=== PATIENT | female | born 1940 | race Caucasian/White ===

== ENCOUNTER 2017-01-08 18:16 | Emergency (ER) | payer MEDICARE, BC ==
--- NOTE | 2017-01-08 18:50 | ED ---
General Adult HPI - General Chief complaint: Recheck/Abnormal Lab/Rx Stated complaint: BOWEL PROBLEM Time Seen by Provider: 01/08/17 18:30 Source: patient Mode of arrival: ambulatory Limitations: no limitations - History of Present Illness Initial comments: Patient is a 76-year-old female with a past medical history of pancreatic cancer for which she has received chemo and radiation. Patient reports she was advised by her primary care physician to come to the ER if she ever stops passing gas. Patient states that today around 9 AM she had a normal bowel movement, it was soft in consistency and normal in color and caliber. She reports that until about noon she was passing gas however since that time she has not been able to. The patient states she came to the emergency department for an x-ray for evaluation of not passing gas. Patient does complain of a vague abdominal discomfort though she denies any pain she has been eating a normal diet and being able to drink. Patient states that all of her care for her pancreatic cancer has been done at [facility] however she had to be transferred to [facility] for stent placement in her liver. However they state this was in outpatient procedure and she was transferred immediately back to [facility] where she follows with Dr. Paulino. Patient's family at bedside state they have not seen her for a couple of weeks but that they do agree she appears jaundiced today. They state that the patient was diagnosed with pancreatic cancer in October of last year, they're unsure of what exact therapy she has undergone. They do state that she has had chemo, radiation and a stent placed however they are not sure of the timeline of events. - Related Data Home Medications Medication Instructions Recorded Confirmed Vitamin E (Dl,Tocopheryl Acet) 400 unit PO DAILY 02/25/16 01/08/17 [Vitamin E] Cranberry Fruit Extract [Cranberry] 200 mg PO DAILY 01/08/17 01/08/17 Allergies Allergy/AdvReac Type Severity Reaction Status Date / Time nitrofurantoin Allergy Unknown Verified 01/08/17 20:04 [From Macrobid] hydroxyzine AdvReac Nausea & Verified 01/08/17 20:04 Vomiting sulfamethoxazole AdvReac HEADACHE Verified 01/08/17 20:04 [From Bactrim] trimethoprim [From Bactrim] AdvReac HEADACHE Verified 01/08/17 20:04 Review of Systems ROS Statement: Those systems with pertinent positive or pertinent negative responses have been documented in the HPI. ROS Other: All systems not noted in ROS Statement are negative. Constitutional: Reports: weakness (Generalized). Denies: fever Respiratory: Denies: cough, dyspnea Cardiovascular: Denies: chest pain, palpitations Endocrine: Reports: fatigue Gastrointestinal: Reports: abdominal pain, constipation. Denies: nausea, vomiting, diarrhea, hematemesis Genitourinary: Denies: urgency, dysuria Musculoskeletal: Denies: back pain Skin: Denies: rash, lesions Neurological: Reports: confusion. Denies: headache Psychiatric: Denies: anxiety Past Medical History Past Medical History: Cancer, Hypertension Additional Past Medical History / Comment(s): pancreatic cancer, whith current chemotherapy History of Any Multi-Drug Resistant Organisms: None Reported Past Surgical History: Unable to Obtain Past Psychological History: No Psychological Hx Reported Smoking Status: Current every day smoker Past Alcohol Use History: None Reported Past Drug Use History: None Reported General Exam Limitations: no limitations General appearance: alert, in no apparent distress Head exam: Present: atraumatic, normocephalic, normal inspection Eye exam: Present: PERRL, EOMI, scleral icterus ENT exam: Present: normal exam, mucous membranes moist Neck exam: Present: normal inspection. Absent: tenderness, meningismus, lymphadenopathy Respiratory exam: Present: normal lung sounds bilaterally. Absent: respiratory distress, wheezes, rales, rhonchi, stridor Cardiovascular Exam: Present: regular rate, normal rhythm, normal heart sounds. Absent: systolic murmur, diastolic murmur, rubs, gallop, clicks GI/Abdominal exam: Present: soft, normal bowel sounds. Absent: distended, tenderness, guarding, rebound, rigid Rectal exam: Present: deferred Extremities exam: Present: normal inspection, full ROM, normal capillary refill. Absent: tenderness, pedal edema, joint swelling, calf tenderness Neurological exam: Present: alert Psychiatric exam: Present: normal affect, other (pleasantly confused) Skin exam: Present: warm, dry, other (jaundice) Course Vital Signs 01/08/17 01/08/17 01/08/17 18:19 20:24 20:59 Temperature 100.3 F H 99.8 F H Pulse Rate 95 90 Respiratory 17 18 Rate Blood Pressure 153/76 166/76 O2 Sat by Pulse 97 96 Oximetry - Reevaluation(s) Reevaluation #1: Lab findings were discussed with the patient, I advised her that she has multiple abnormalities which are concerning and that she needs to follow up with her cancer specialist. Computed tomography scan was ordered. Patient family state they would prefer to stay at this hospital is closer to their home , however they understand the for continuity of care they're agreeable for transfer 01/08/17 20:20 Reevaluation #2: I advised the patient and her family that I discussed transfer care with Dr. Baca at [facility] who accepts the transfer for elevated transaminases and elevated total bili with concern for obstructive jaundice secondary to a pancreatic cancer 01/08/17 21:02 Medical Decision Making - Medical Decision Making Patient was seen and evaluated History was obtained from the patient Vital signs were reviewed History is vague as patient seems to have a vague abdominal pain and concern that she is not passing gas though it has only been a number of hours and she has not experienced any significant abdominal pain. Her exam is benign aside from jaundice and scleral icterus. Considering the patient's history of pancreatic cancer with obstructive jaundice in the past I am concerned about this. Family at bedside hasn't seen the patient and number of weeks and that they don't comment on her jaundice state when questioned they do agree that she appears jaundiced today. They're unsure if she appears jaundiced every day since the diagnosis of her pancreatic cancer. Labs were ordered Labs reveal significant abnormalities suggestive of obstructive jaundice with a total bili of 9.8 and elevated transaminases and alk phos These results were discussed with the patient as well as her family, I advised them that for continuity of care and will be in the patient's best interest to be transferred to [facility] where she has received all of her care in the past. I advised the patient that we need a computed tomography scan of the abdomen as well as an ultrasound. Patient and family expressed desire for the transfer to occur sooner rather than later so the family can go home. I advised them that I will discuss care with [facility] and see if they accept transfer without definitive imaging Patient care was discussed with Dr. Baca at [facility] who accepts transfer for obstructive jaundice in a patient with a history of pancreatic cancer currently undergoing therapy. Dr. Baca is aware that the patient has not had an ultrasound today, and states that they can complete that at his facility. Patient is undergoing computed tomography scan at this facility, disc will be burning results will be transferred to the physicians at [facility]. - Lab Data Result diagrams: 01/08/17 19:07 01/08/17 19:07 Lab Results 01/08/17 01/08/17 01/08/17 Range/Units 19:07 19:07 19:07 WBC 9.5 (3.8-10.6) k/uL RBC 3.80 (3.80-5.40) m/uL Hgb 12.0 (11.4-16.0) gm/dL Hct 37.4 (34.0-46.0) % MCV 98.3 (80.0-100.0) fL MCH 31.5 (25.0-35.0) pg MCHC 32.1 (31.0-37.0) g/dL RDW 14.6 (11.5-15.5) % Plt Count 328 (150-450) k/uL Neutrophils % 82 % Lymphocytes % 11 % Monocytes % 5 % Eosinophils % 1 % Basophils % 0 % Neutrophils # 7.8 H (1.3-7.7) k/uL Lymphocytes # 1.0 (1.0-4.8) k/uL Monocytes # 0.5 (0-1.0) k/uL Eosinophils # 0.1 (0-0.7) k/uL Basophils # 0.0 (0-0.2) k/uL PT 10.6 (9.0-12.0) sec INR 1.0 (<1.2) APTT 23.4 (22.0-30.0) sec Sodium 136 L (137-145) mmol/L Potassium 3.9 (3.5-5.1) mmol/L Chloride 101 (98-107) mmol/L Carbon Dioxide 23 (22-30) mmol/L Anion Gap 12 mmol/L BUN 13 (7-17) mg/dL Creatinine 0.55 (0.52-1.04) mg/dL Est GFR (MDRD) Af Amer >60 (>60 ml/min/1.73 sqM) Est GFR (MDRD) Non-Af >60 (>60 ml/min/1.73 sqM) Glucose 108 H (74-99) mg/dL Calcium 9.4 (8.4-10.2) mg/dL Total Bilirubin 9.3 H (0.2-1.3) mg/dL AST 340 H (14-36) U/L ALT 304 H (9-52) U/L Alkaline Phosphatase 734 H (38-126) U/L Ammonia (<30) umol/L Total Protein 6.8 (6.3-8.2) g/dL Albumin 3.7 (3.5-5.0) g/dL Urine Color Urine Appearance (Clear) Urine pH (5.0-8.0) Ur Specific [place] (1.001-1.035) Urine Protein (Negative) Urine Glucose (UA) (Negative) Urine Ketones (Negative) Urine Blood (Negative) Urine Nitrite (Negative) Urine Bilirubin (Negative) Urine Urobilinogen (<2.0) mg/dL Ur Leukocyte Esterase (Negative) Urine RBC (0-5) /hpf Urine WBC (0-5) /hpf Ur Squamous Epith Cells (0-4) /hpf Urine Bacteria (None) /hpf Urine Mucus (None) /hpf 01/08/17 01/08/17 Range/Units 19:07 19:07 WBC (3.8-10.6) k/uL RBC (3.80-5.40) m/uL Hgb (11.4-16.0) gm/dL Hct (34.0-46.0) % MCV (80.0-100.0) fL MCH (25.0-35.0) pg MCHC (31.0-37.0) g/dL RDW (11.5-15.5) % Plt Count (150-450) k/uL Neutrophils % % Lymphocytes % % Monocytes % % Eosinophils % % Basophils % % Neutrophils # (1.3-7.7) k/uL Lymphocytes # (1.0-4.8) k/uL Monocytes # (0-1.0) k/uL Eosinophils # (0-0.7) k/uL Basophils # (0-0.2) k/uL PT (9.0-12.0) sec INR (<1.2) APTT (22.0-30.0) sec Sodium (137-145) mmol/L Potassium (3.5-5.1) mmol/L Chloride (98-107) mmol/L Carbon Dioxide (22-30) mmol/L Anion Gap mmol/L BUN (7-17) mg/dL Creatinine (0.52-1.04) mg/dL Est GFR (MDRD) Af Amer (>60 ml/min/1.73 sqM) Est GFR (MDRD) Non-Af (>60 ml/min/1.73 sqM) Glucose (74-99) mg/dL Calcium (8.4-10.2) mg/dL Total Bilirubin (0.2-1.3) mg/dL AST (14-36) U/L ALT (9-52) U/L Alkaline Phosphatase (38-126) U/L Ammonia 10 (<30) umol/L Total Protein (6.3-8.2) g/dL Albumin (3.5-5.0) g/dL Urine Color Dark Yellow Urine Appearance Clear (Clear) Urine pH 5.5 (5.0-8.0) Ur Specific [place] 1.014 (1.001-1.035) Urine Protein Negative (Negative) Urine Glucose (UA) Negative (Negative) Urine Ketones 1+ H (Negative) Urine Blood Small H (Negative) Urine Nitrite Negative (Negative) Urine Bilirubin 3+ H (Negative) Urine Urobilinogen 4.0 (<2.0) mg/dL Ur Leukocyte Esterase Moderate H (Negative) Urine RBC 3 (0-5) /hpf Urine WBC 6 H (0-5) /hpf Ur Squamous Epith Cells 2 (0-4) /hpf Urine Bacteria Rare H (None) /hpf Urine Mucus Rare H (None) /hpf Disposition Clinical Impression: Obstructive jaundice due to cancer Disposition: OTHER INSTITUTION NOT DEFINED Condition: Serious Referrals: Darshana East DO [Primary Care Provider] - 1-2 days Time of Disposition: 21:14 - Out of Hospital Transfer - Req. Specs Out of Hospital Transfer - Requested Specifics: Other Emergency Center
[2017-01-08 19:24] LABS: Basophils % (A) 0 %; CH 31.4; CHCM 32.2; Eosinophils # (A) 0.1 k/uL (0-0.7); Eosinophils % (A) 1 %; HCT 37.4 % (34.0-46.0); HDW 2.04; Luc # (Auto) 0.16; Luc % (Auto) 2; Lymphocytes % (A) 11 %; MCH 31.5 pg (25.0-35.0); MCHC 32.1 g/dL (31.0-37.0); MCV 98.3 fL (80.0-100.0); Mean Platelet Volume 8.1; Monocytes # (A) 0.5 k/uL (0-1.0); Monocytes % (A) 5 %; Neutrophils # (A) 7.8 k/uL (1.3-7.7); Neutrophils % (A) 82 %; RDW 14.6 % (11.5-15.5); WBC 9.5 k/uL (3.8-10.6); WBC (Perox) 8.97
[2017-01-08 19:32] LABS: Appearance,Urine Clear (Clear); Bacteria,Urine Rare /hpf; Bilirubin,Urine 3+ (Negative); Glucose,Urine (UA) Negative (Negative); Ketones,Urine 1+ (Negative); Leukocyte Esterase,Urine Moderate (Negative); Mucus,Urine Rare /hpf; Nitrite,Urine Negative (Negative); PH, Urine 5.5 (5.0-8.0); Particle Count 5278; Protein,Urine Negative (Negative); RBC,Urine 3 /hpf (0-5); Specific Gravity,Urine 1.014 (1.001-1.035); Squamous Epithelial Cell,Urine 2 /hpf (0-4); UA Billing (MACRO vs. MICRO) MICRO; WBC,Urine 6 /hpf (0-5)
[2017-01-08 19:33] LABS: ALT 304 U/L (9-52); AST 340 U/L (14-36); Alkaline Phosphatase 734 U/L (38-126); Anion Gap 12 mmol/L; Blood Urea Nitrogen 13 mg/dL (7-17); Calcium 9.4 mg/dL (8.4-10.2); Carbon Dioxide 23 mmol/L (22-30); Chloride 101 mmol/L (98-107); Glucose 108 mg/dL (74-99); Non-African American GFR(MDRD) >60 (>60 ml/min/1.73 sqM); Potassium 3.9 mmol/L (3.5-5.1); Sodium 136 mmol/L (137-145); Total Bilirubin 9.3 mg/dL (0.2-1.3); Total Protein 6.8 g/dL (6.3-8.2)
[2017-01-08 20:01] LABS: Prothrombin Time 10.6 sec (9.0-12.0)
--- NOTE | 2017-01-08 20:01 | XR ---
EXAMINATION TYPE: XR abdomen acute w cxr DATE OF EXAM: 01/08/2017 COMPARISON: NONE HISTORY: Pain TECHNIQUE: Supine, upright, and left side down lateral decubitus views of the abdomen are obtained. FINDINGS: Right IJ Port-A-Cath tip superimposed over the distal SVC. The lungs are clear and well expanded. Ple ural spaces are negative. Cardiomediastinal silhouette and bones and soft tissues are unremarkable. There is no evidence for pneumoperitoneum. The bowel gas pattern is unremarkable as there is air thro ughout nondilated small and large bowel. No sizeable air fluid levels. No mass or mass effect mass ef fect seen. No unusual calcifications. IMPRESSION: No acute process, but excessive pancolonic stool is noted.
[2017-01-08] MEDS ORDERED: RX INFO: IV CONTRAST WAS GIVEN 1 EACH MISC MISCELLANE PRN (20:16)
[2017-01-08 20:25] LABS: Partial Thromboplastin Time 23.4 sec (22.0-30.0)
[2017-01-08 21:01] VITALS: PULSE 90; RESP 18
[2017-01-08 21:27] VITALS: BP 150/79; TEMP 99
--- NOTE | 2017-01-08 22:37 | CT ---
EXAMINATION TYPE: CT abdomen pelvis w con DATE OF EXAM: 01/08/2017 COMPARISON: CT CHEST SUBDIAPHRAGMATIC IMAGES 02/05/2011 HISTORY: No bowel movements. Hx of pancreatic CA. CT DLP: 349.6 mGycm Automated exposure control for dose reduction was used. TECHNIQUE: Helical acquisition of images was performed from the lung bases through the pelvis. CONTRAST: Performed with Oral Contrast and with IV Contrast, patient injected with 100 mL of Omnipaqu e 300. FINDINGS: There is prominent gas throughout the intrahepatic biliary tree with prominent dilation of the intrahepatic biliary tree to a moderate degree diffusely and with extra hepatic biliary tree dila tion down to the level of the head of the pancreas where there is also pancreatic ductal cut off. Azam t is, the pancreatic ductal anatomy is dilated throughout the pancreatic tail and body and neck down to the head with there is abrupt cut off. The uncinate process and head of the pancreas has lost its normal acinar pattern and is masslike and indistinct over a 3 cm diameter zone. There is leftward dev iation of the uppermost superior mesenteric vein, but the portal splenic confluence and portal venous system remain widely patent. There are no focal liver lesions evident. No portal adenopathy. LUNG BASES: No significant abnormality is appreciated. SPLEEN: No significant abnormality is seen. ADRENALS: No significant abnormality is seen. KIDNEYS: No significant abnormality is seen. FREE AIR: No free air is visualized. RETROPERITONEAL ADENOPATHY: None visualized REPRODUCTIVE ORGANS: No significant abnormality is seen URINARY BLADDER: No significant abnormality is seen. PELVIC ADENOPATHY: None visualized. OSSEOUS STRUCTURES: No significant abnormality is seen. BOWEL: No significant abnormality is seen. 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
== END 2017-01-08 22:16 | disposition short-term general hospital (02) ==
LOC: EC 18:16
DX: K83.1 Obstruction of bile duct (principal); C25.9 Malignant neoplasm of pancreas, unspecified; R74.0 Nonspecific elevation of levels of transaminase and lactic acid dehydrogenase [LDH]; R41.0 Disorientation, unspecified; F17.200 Nicotine dependence, unspecified, uncomplicated; Z79.899 Other long term (current) drug therapy; Z88.1 Allergy status to other antibiotic agents; Z88.8 Allergy status to other drugs, medicaments and biological substances; Z92.21 Personal history of antineoplastic chemotherapy; Z92.3 Personal history of irradiation; Z96.89 Presence of other specified functional implants
CPT/HCPCS: 36415; 80053; 82140; 85025; 85610; 85730; 81001; 74022; 74177; 99285; Q9967